=== PATIENT | male | born 1945 | race Caucasian/White ===

== ENCOUNTER 2017-10-03 16:29 | Emergency (ER) | payer OTHER ==
[~2017-10-03] VITALS: Ht 198.1 cm; Wt 120.7 kg
[~2017-10-03 16:29] MED LIST: ALBUAER3 IN; FLU05NSL; INSUINJ SC; INSUINJ2 SC; LACT10SO3 PO; LORA-352 PO; METO25TA5 PO; OMEP20CA74 PO; PERCOT PO; SIMV-13 PO; TERA10CA36 PO; [UNRECOGNIZED DRUG - CODE] IN
[2017-10-03 16:39] VITALS: BP 123/60
[2017-10-03] MEDS ORDERED: BACITRACIN TOP OINT 1 UD PKG TOP ONE (19:32)
[2017-10-03] MEDS ORDERED: cefTRIAXone SOD 1,000 MG VL ONE (19:48)
[2017-10-03] MEDS ORDERED: LACTULOSE 20Gm/30ML SOLN ONE (19:48)
== END 2017-10-03 19:54 | disposition home or self-care (01) ==
LOC: ER 16:29
DX: S00.03XA Contusion of scalp, initial encounter (principal); E11.22 Type 2 diabetes mellitus with diabetic chronic kidney disease; I12.0 Hypertensive chronic kidney disease with stage 5 chronic kidney disease or end stage renal disease; N18.6 End stage renal disease; E78.5 Hyperlipidemia, unspecified; J45.909 Unspecified asthma, uncomplicated; K21.9 Gastro-esophageal reflux disease without esophagitis; Z88.0 Allergy status to penicillin; Z99.2 Dependence on renal dialysis; W05.1XXA Fall from non-moving nonmotorized scooter, initial encounter; Y93.I9 Activity, other involving external motion; Y92.488 Other paved roadways as the place of occurrence of the external cause; Y99.8 Other external cause status
CPT/HCPCS: 70450; 99284; J0696